=== PATIENT | female | born 1955 | race Caucasian/White ===

== ENCOUNTER 2019-02-14 10:34 | Inpatient (IN) ==
--- NOTE | 2019-01-13 15:12 | PAT Medication Instructions ---
Medication Instructions Date of Service January 13, 2019 Home Medications cyanocobalamin (vitamin B-12) [Vitamin B-12] 5,000 mcg SUBLINGUAL QAM ergocalciferol (vitamin D2) [Vitamin D2] 50,000 unit PO WK hydrochlorothiazide 25 mg PO QAM omeprazole magnesium [Prilosec OTC] 20 mg PO QAM DO NOT take the morning of surgery cyanocobalamin (vitamin B-12) [Vitamin B-12] 5,000 mcg SUBLINGUAL QAM ergocalciferol (vitamin D2) [Vitamin D2] 50,000 unit PO WK hydrochlorothiazide 25 mg PO QAM Take morning of surgery With a small sip of water, OTHERWISE NOTHING TO EAT OR DRINK AFTER MIDNIGHT: omeprazole magnesium [Prilosec OTC] 20 mg PO QAM Other Notes If you have any questions please call us at [phone] or [phone] or [phone] or [phone]
--- NOTE | 2019-01-14 12:52 | Anesthesiology Consultation ---
Date of Service January 14, 2019 Assessment & Plan (1) Encounter for pre-operative examination: - Claustrophobia: patient anxious RE: oxygen mask-- patient states tolerates nasal cannula without issue - Hx L5-S1 fusion: per patient, attempted SAB for prior left TKA (at [facility]) was unsuccessful due to hx of prior lumbar fusion. Discussed SAB vs. GA with patient. Advised that anesthesia will evaluate patient further AM DOS/determine type of anesthesia. Chart Review Chart Review: Pending: Refer to Additional Notes / Consult section (pending preop testing (labs, EKG, CXR)) and Patient seen in Pre Admission Testing Teaching & Discussion Pre-Anesthesia Teaching/Discussion Notes: Instructed NPO after midnight before surgery,except medications with 15 cc of water. Medication instructions provided according to the PAT guidelines. History Surgery Operation Date: 02/14/19 08:30 Proposed Procedures p Right Total Knee Arthroplasty - Damián Felix, Height/Weight Height: 5 ft 6 in Weight: 97.2 kg Allergies Allergy/AdvReac Type Severity Reaction Status Date / Time Penicillins Allergy Intermediate as child Verified 01/07/19 07:56 cefuroxime AdvReac Severe YEAST Verified 01/07/19 07:56 INFECTION NSAIDS (Non-Steroidal AdvReac Unknown Unknown Verified 01/07/19 07:56 Anti-Inflamma SULFA Allergy Intermediate REDNESS Uncoded 01/07/19 07:56 Medications Home Medications Medication Instructions Recorded Confirmed Last Taken cyanocobalamin (vitamin B-12) 5,000 mcg SUBLINGUAL QAM 01/07/19 01/07/19 Unknown [Vitamin B-12] ergocalciferol (vitamin D2) 50,000 unit PO WK 01/07/19 01/07/19 Unknown [Vitamin D2] hydrochlorothiazide 25 mg PO QAM 01/07/19 01/07/19 Unknown omeprazole magnesium [Prilosec OTC] 20 mg PO QAM 01/07/19 01/07/19 Unknown Past Medical History Medical History Acid reflux s/p gastric bypass/controlled on PPI Obesity Claustrophobia DJD (degenerative joint disease) of knee HX: breast cancer 03/2018 s/p lumpectomy/XRT Exercise / Class Metabolic Activity II 4-5 Yardwork/Stairs/Walk up hill (one flight of stairs- no chest pain/sob) Past Surgical History Surgical History History of back surgery History of cardiac cath 2007= no stents History of gastric bypass History of lumpectomy of left breast History of surgery on right wrist History of total left knee replacement Hx of section x3 Hx of cholecystectomy Hx of colonoscopy Hx of cornea transplant right Hx of foot surgery left Hx of tonsillectomy Past Anesthesia History Other Patient: per patient, attempted SAB for prior left TKA (at [facility]) was unsuccessful due to hx of prior lumbar fusion. Also, history of "slow to wake" Mother: "goofy" and post-op n/v History of PONV No Hx of PONV and No Hx of Motion Sickness Social History Smoking Status: Never smoker Do You Dip or Chew Tobacco: No Hx Alcohol Use: Yes Alcohol type: beer, wine and hard liquor alcohol intake frequency: a few times a month Hx Substance Use: No Review of Systems + URI symptoms. Rare reflux s/p gastric bypass. Patient denies chest pain, shortness of breath, dyspnea on exertion, joint pain, reflux, palpitations. Physical Exam Vital Signs VITALS BP 133/83 P 65 TEMP 97.8 SP02 98%RA RESP 16 PHYSICAL Full neck and c-spine range of motion. Full TMJ range of motion. TMD 3 finger breaths Mallampati Score 2 Dentition: intact, implants on molar Lungs: clear throughout to auscultation Cardiac: regular rate and rhythm, no murmurs noted Spine: normal Carotid arteries: negative bruit Extremities: no edema
[2019-01-14 13:26] LABS: Basophils # (auto) 0.02 K/uL (0-0.2); Basophils % (auto) 0.3 %; Eosinophils # (auto) 0.05 K/uL (0-0.5); Eosinophils % (auto) 0.8 %; Hemoglobin 11.9 g/dL (12.0-16.0); Immature Granulocytes # (auto) 0.01 K/uL (0.00-0.02); Immature Granulocytes % (auto) 0.2 %; Lymphocytes # (auto) 1.83 K/uL (1.2-3.4); Lymphocytes % (auto) 30.4 %; Mean Corpuscular Hemoglobin 30.1 pg (25-34); Mean Corpuscular Hgb Conc 32.2 g/dL (32-36); Mean Corpuscular Volume 93.4 fL (80-100); Mean Platelet Volume 10.9 fL (7.4-10.4); Monocytes % (auto) 6.6 %; Neutrophils # (auto) 3.71 K/uL (1.4-6.5); Neutrophils % (auto) 61.7 %; Platelet Count 226 K/uL (130-400); RDW Coefficient of Variation 13.6 % (11.5-14.5); RDW Standard Deviation 46.6 fL (36.4-46.3); Red Blood Count 3.96 M/uL (4.2-5.4); White Blood Count 6.02 K/uL (4.8-10.8)
--- NOTE | 2019-01-14 13:33 | XRay Report ---
XR chest Pre-admission PA/Lat CLINICAL HISTORY: pat preoperative evaluation COMPARISON STUDY: No previous studies for comparison. FINDINGS: The bones soft tissues and hemidiaphragms are normal. The cardiomediastinal silhouette is n ormal. The lungs are clear. The pulmonary vasculature is normal. IMPRESSION: Negative chest. The above report was generated using voice recognition software. It may contain grammatical, syntax or spelling errors. Electronically signed by: Klever Valdivia M.D. 01/14/2019 1:32 PM
[2019-01-14 13:46] LABS: Partial Thromboplastin Ratio 0.9; Partial Thromboplastin Time 25.1 Seconds (21.0-31.0)
[2019-01-14 14:37] LABS: BUN Creatinine Ratio 16.7 (10-20); Calcium 8.2 mg/dl (8.5-10.1); Creatinine Clr Calc Pharmacy 91.4 ml/min; Est GFR (Non-African American) 85.4; Potassium 3.3 mmol/L (3.5-5.1)
--- NOTE | 2019-02-13 14:54 | History & Physical Report ---
Date of Service February 13, 2019 Assessment & Plan (1) Osteoarthritis of right knee: We will proceed with a right total knee arthroplasty. Postoperatively she will be started on aspirin for DVT prophylaxis. She will be kept overnight in the hospital for postoperative medical management. She plans to use home nursing agency in [place] upon discharge. Present on Admission?: Yes History of Present Illness Chief Complaint: Primary osteoarthritis of the right knee Primary Care Provider: NO PCP Keisha is a pleasant 63-year-old female who had a left knee replaced in [place] a year ago. She is doing well with that. Unfortunately she is having a lot of right knee pain. X-rays and clinical examination have been diagnostic for osteoarthritis of the right knee. After failing conservative treatment, she has elected to proceed with a right total knee arthroplasty. Allergies Allergy/AdvReac Type Severity Reaction Status Date / Time Penicillins Allergy Intermediate as child Verified 01/07/19 07:56 Sulfa (Sulfonamide Allergy Redness Verified 02/11/19 09:02 Antibiotics) cefuroxime AdvReac Severe YEAST Verified 01/07/19 07:56 INFECTION NSAIDS (Non-Steroidal AdvReac Unknown Unknown Verified 01/07/19 07:56 Anti-Inflamma Home Medications Home Medications Medication Instructions Recorded Confirmed Type cyanocobalamin (vitamin B-12) 5,000 mcg SUBLINGUAL QAM 01/07/19 01/07/19 History [Vitamin B-12] ergocalciferol (vitamin D2) 50,000 unit PO WK 01/07/19 01/07/19 History [Vitamin D2] hydrochlorothiazide 25 mg PO QAM 01/07/19 01/07/19 History omeprazole magnesium [Prilosec OTC] 20 mg PO QAM 01/07/19 01/07/19 History Past Med/Surg History Medical History (Updated 02/13/19 @ 14:54 by Damián Felix DO) Acid reflux s/p gastric bypass/controlled on PPI Claustrophobia DJD (degenerative joint disease) of knee HX: breast cancer 03/2018 s/p lumpectomy/XRT Obesity Surgical History History of back surgery History of cardiac cath 2008= no stents History of gastric bypass History of lumpectomy of left breast History of surgery on right wrist History of total left knee replacement Hx of section x3 Hx of cholecystectomy Hx of colonoscopy Hx of cornea transplant right Hx of foot surgery left Hx of tonsillectomy Social History Preferred Language: Greek Communication Ability: Effective Beliefs That Will Affect Care: None Current Living Situation: Spouse Feels Safe at Home: Yes Safety Concerns: Feels Safe At This Time Smoking Status: Never smoker Do You Dip or Chew Tobacco: No ; Second Hand Exposure: No ; Hx Alcohol Use: Yes Alcohol type: beer, wine and hard liquor Hx Substance Use: No Review of Systems All systems reviewed & are unremarkable except as noted in HPI & below Physical Exam Constitutional: WD/WN, vitals as above Eyes: PERRL, conjunctivae normal, anicteric sclerae ENMT: external ear and nose normal, oropharynx normal Neck: trachea midline, no thyromegaly Respiratory: normal respiratory effort Cardiovascular: RRR, no murmur, no edema Gastrointestinal (Abdomen): normal bowel sounds, soft, nontender, no hepatosplenomegaly Musculoskeletal: On physical examination of the right knee there is a trace effusion. There is near full range of motion and no evidence of instability. There is significant tenderness palpation along the medial and lateral joint lines and over the distal femoral condyles. Psychiatric: A+Ox3, euthymic affect Results & Data Diagnostic Findings Radiographs of the right knee demonstrate advanced osteoarthritis with joint space narrowing osteophyte formation and [id number] articulation.
[~2019-02-14 10:34] MED LIST: ACETAMINOPHEN 500 MG TAB PO SCH; BUPIVACAINE 0.5 % 5 MG/1 ML PF 10ML VIAL ONE; CEFAZOLIN 2000MG 2,000 MG/15 ML SYR IV SCH; FAMOTIDINE 20 MG TAB PO SCH; GABAPENTIN 600 MG DOSE PO SCH; LR 500ML BOLUS, THEN 15ML/HR IV SCH; LR 60ML/HR IV SCH; MIDAZOLAM HCL 1 MG/ML 2ML VIAL ONE; ROPIVACAINE 0.5% HCL/PF 150 MG, BUPIVACAINE 0.5% MPF 30 ML, EPINEPHrine 30MG/30ML (OR U... INSTIL SCH; TRANEXAMIC ACID 1,000 MG **IV Intra-op IV SCH; TRANEXAMIC ACID 1,000 MG **IV Pre-op IV SCH; fentaNYL citrate 100 MCG/2 ML VIAL ONE
--- NOTE | 2019-02-14 11:19 | History & Physical Bridge Note ---
Date of Service February 14, 2019 History & Physical Bridge Note I have examined the patient, reviewed the History & Physical and in the interval since the performance of the History & Physical I have noted the following changes of clinical significance: no changes noted
[2019-02-14] MEDS ORDERED: CEFAZOLIN 2,000 MG/15 ML IV PUSH IV ONE (11:57)
[2019-02-14] MEDS ORDERED: ORTHO JOINT ANESTHETIC ONE (11:59)
[2019-02-14] MEDS ORDERED: ePHEDrine sulfate 50 MG/ML AMP IV PRN (12:18)
[2019-02-14] MEDS ORDERED: ONDANSETRON INJ 2 MG/ML 2 ML VIAL IV PRN ×2 (12:18→16:05)
[2019-02-14] MEDS ORDERED: fentaNYL citrate 100 MCG/2 ML VIAL IV PRN (12:18)
[2019-02-14] MEDS ORDERED: ATROPINE SULFATE 0.1 MG/ML 10ML SYR IV PRN (12:18)
[2019-02-14] MEDS ORDERED: PROPOFOL IV EMULSION 10 MG/ML 20 ML VIAL IV ONE (13:00)
[2019-02-14] MEDS ORDERED: ONDANSETRON INJ 2 MG/ML 2 ML VIAL ONE (13:00)
[2019-02-14] MEDS ORDERED: LIDOCAINE HCL 2% 2 ML VIAL/AMP(20MG/ML) INFIL ONE (13:00)
--- NOTE | 2019-02-14 14:11 | Operative Report ---
PG Post Operative Report Pre & Post Diagnosis Operation Date: 02/14/19 13:40 Pre-Op Diagnosis: RIGHT KNEE DEGENERATIVE JOINT DISEASE Post-Op Diagnosis: RIGHT KNEE DEGENERATIVE JOINT DISEASE I identified the patient and participated in the time-out.: Yes Procedure Operation Date: 02/14/19 13:40 Actual Procedures p Right Total Knee Arthroplasty(Right) - Damián Felix DO Surgeon Damián Felix DO Systems Eng Damián Vogt PAC Estimated Blood Loss 20 Findings Consistent with Post-Op Diagnosis Specimens Right femoral and tibial bone Complications none Disposition Disposition: Recovery Room Indications Keisha is a pleasant 63-year-old female who presented my office with complaints of increasing right knee pain. X-rays and clinical examination were diagnostic for primary osteoarthritis of the right knee. After failing conservative treatment, she elected proceed with a right total knee arthroplasty. Description of Procedure Implants used: I used a [employer] Vanguard total knee arthroplasty system with a size 67.5 femur, 67 tibia, 28 patella, and a size 10 PS polyethylene bearing. All components were cemented in place with Palacos G cement. The patient arrived [facility] for the above procedure. There were seen in the preoperative holding area and the operative extremity was identified and signed. There were given a preoperative antibiotic, a spinal anesthetic and an adductor nerve block. There were taken back to the operating room and laid on the table in supine position. There were given basic sedation. The operative knee was then prepped and draped in sterile fashion. A timeout was done, and the patient and the operative extremity was properly identified. A midline incision was made directly over the patella. Dissection was taken down to the extensor mechanism. A subvastus arthrotomy was used. The medial retinaculum was released and the fat pad was mostly left intact. The knee was flexed and the ACL, PCL, and meniscus were removed. A drill was sent down the center of the femoral canal followed by an intramedullary angelic. Off that angelic a distal femoral cutting block was placed. 9 mm was resected off the distal femur at 5 of valgus. A posterior referencing AP sizing guide was then placed on the distal femur. The femur measured to be a size 67.5. 2 drill holes were placed in 3 of external rotation. A 4-in-1 cutting block was then impacted into place. Anterior posterior and chamfer cuts were then made. The posterior stabilizing box guide was then impacted into place and the box was resected for the posterior stabilizing component. The proximal tibia was then exposed. A drill was sent down the center of the tibial canal followed by an intramedullary angelic. Off that angelic a proximal tibial resection guide was placed. The proximal tibia was then resected. The tibia measured to be a size 67. The tibial plate was then placed in the appropriate rotation and the tibia was punched. The posterior aspect of the knee was then opened up and any additional meniscus fragments and osteophytes were removed. Trial components were then placed. I used a size 10 PS polyethylene insert. The knee was brought through a full range of motion and felt to be stable. The patella was then everted and 8 mm was resected off the posterior aspect of the patella. The patella measured to be a size 28. 3 peg holes were then drilled. A trial patella was placed. The knee was once again brought through a full range of motion and felt to be stable. Trial components were then removed. The surrounding soft tissues were injected with 100 cc of an orthopedic pain control cocktail. All components were then cemented into place with Palacos G cement. The final polyethylene insert was then snapped into place and the anterior bar was locked. Once cement was dry the tourniquet was deflated. Hemostasis was obtained. A dilute betadyne lavage was then done for 3 minutes. The joint was then irrigated with normal saline solution. The subvastus arthrotomy was then closed with #1 Vicryl suture. The skin was closed with 2-0 Vicryl, 3-0V lock suture, and rafa. A soft compressive dressing was placed. The patient was then transferred to a hospital bed and taken to the postanesthesia care unit in stable condition. They tolerated the procedure well. I attest to the content of the Intraoperative Record and any orders documented therein. Any exceptions are noted below.
--- NOTE | 2019-02-14 15:19 | XRay Report ---
RIGHT KNEE 2 VIEWS History: Right total knee arthroplasty. Degenerative arthritis. Postop. FINDINGS: The patient is status post a right total knee arthroplasty. The hardware is intact. No frac ture or dislocation. Skin rafa are in place. IMPRESSION: Right total knee arthroplasty. No evidence for hardware complication. Electronically signed by: Yimi Cosby M.D. 02/14/2019 3:18 PM
--- NOTE | 2019-02-14 15:30 | Anesthesiology Progress Note ---
Date of Service February 14, 2019 Anesthesia Post Procedure Vital Signs Vital Signs: Temp Pulse Pulse Resp BP Pulse Ox 02/14/19 15:23 49 L 20 136/63 100 02/14/19 15:13 50 L 17 137/68 100 02/14/19 15:03 54 L 18 130/70 100 02/14/19 14:53 36.5 C 54 L 16 127/62 97 02/14/19 14:43 36.5 C 54 L 16 127/62 97 02/14/19 11:32 36.7 C 58 L 20 142/71 H 98 Pain Intensity Right Knee: Pain Intensity: 0 Transfer of Care Handoff Completed per policy Notes Mental Status: alert / awake / arousable and participated in evaluation Patient Amnestic to Procedure: Yes Nausea / Vomiting: adequately controlled Pain: adequately controlled Airway Patency, RR, SpO2: stable & adequate BP & HR: stable & adequate Hydration State: stable & adequate Neuraxial Anesthesia: was administered and sensory block is resolving Anesthetic Complications: no major complications apparent and Pt Satisfied with anesthetic care
[2019-02-14] MEDS: SODIUM CHLORIDE 0.9% 1000ML 1,000 ML IV SCH ×2 (15:55→23:27)
[2019-02-14] MEDS ORDERED: NALOXONE HCL 0.4 MG/1 ML VIAL/CARP IV PRN (16:05)
[2019-02-14] MEDS ORDERED: MAGNESIUM HYDROXIDE SUSP 30 ML UDC PO PRN (16:05)
[2019-02-14] MEDS ORDERED: BISACODYL 10 MG SUPP PR PRN (16:05)
[2019-02-14] MEDS ORDERED: HYDROmorphone INJ 0.5 MG/0.5 ML SYR IV PRN (16:05)
[2019-02-14] MEDS ORDERED: METOCLOPRAMIDE HCL INJ 5 MG/ML 2 ML VIAL IV PRN (16:05)
[2019-02-14] MEDS: prednisoLONE acetate 1% OP SUSP 5 ML BTL OPR SCH ×2 (18:22→20:17)
[2019-02-14] MEDS: OFLOXACIN 0.3% OP SOLN 5 ML BTL OPR SCH ×2 (18:22→20:17)
[2019-02-14] MEDS: SENNA 8.6 MG TAB PO SCH (20:17)
[2019-02-14] MEDS: ASPIRIN 81 MG ECTAB PO SCH (20:17)
[2019-02-14] MEDS: DOCUSATE SODIUM 100 MG CAP PO SCH (20:17)
[2019-02-14] MEDS: ACETAMINOPHEN 500 MG TAB PO SCH (20:17)
[2019-02-14] MEDS: CEFAZOLIN 2000MG 2,000 MG/15 ML SYR IV SCH (20:17)
[2019-02-15] MEDS: OXYCODONE HCL IR 5 MG TAB (IMMEDIATE RELEASE) PO PRN ×6 (01:48→22:24)
[2019-02-15] MEDS: ACETAMINOPHEN 500 MG TAB PO SCH ×3 (05:00→22:19)
[2019-02-15] MEDS: CEFAZOLIN 2000MG 2,000 MG/15 ML SYR IV SCH (05:00)
[2019-02-15 05:51] LABS: Hematocrit (blood only) 34.5 % (37-47); Hemoglobin 11.3 g/dL (12.0-16.0); Mean Corpuscular Hemoglobin 30.5 pg (25-34); Mean Corpuscular Hgb Conc 32.8 g/dL (32-36); Mean Platelet Volume 11.3 fL (7.4-10.4); Platelet Count 204 K/uL (130-400); RDW Coefficient of Variation 13.8 % (11.5-14.5); RDW Standard Deviation 46.9 fL (36.4-46.3); Red Blood Count 3.71 M/uL (4.2-5.4); White Blood Count 10.93 K/uL (4.8-10.8)
[2019-02-15 06:20] LABS: BUN Creatinine Ratio 25.8 (10-20); Calcium 8.3 mg/dl (8.5-10.1); Creatinine Clr Calc Pharmacy 100.2 ml/min; Est GFR (African American) 108.7; Est GFR (Non-African American) 93.7; Potassium 4.2 mmol/L (3.5-5.1)
--- NOTE | 2019-02-15 08:26 | Orthopedic Progress Note ---
Date of Service February 15, 2019 Assessment & Plan (1) History of total right knee replacement: Overall she is doing well. She is not having much pain in the right knee. She is happy with her progress. She will be seen by physical therapy today for ambulation and range of motion exercises. If she is doing well she can be discharged home. If she is a little bit slow today and her pain increases, I told her that she could stay until tomorrow.She will follow-up with orthopedics in 2 weeks. Present on Admission?: Yes Subjective Keisha was seen and examined at bedside this morning. Overall she is doing well. She is not having any pain in the right knee. She is happy with her progress. She has been up and ambulating to the bathroom. She has no complaints. Physical Exam Musculoskeletal: On physical examination of the right knee, the dressing is clean and dry. Her legs out in full extension. She has active dorsiflexion and plantarflexion of her right ankle. Sensation is intact throughout. Results & Data Vital Signs (Past 12 Hours) Vital Signs Temp Pulse Resp BP Pulse Ox 02/15/19 07:56 36.7 C 59 L 17 122/68 95 02/15/19 03:21 36.7 C 56 L 16 109/66 94 02/14/19 23:24 36.6 C 55 L 16 127/76 95 Laboratory Results H & H 01/14/19 02/15/19 Range/Units 13:08 04:52 Hgb 11.9 L 11.3 L (12.0-16.0) g/dL Hct 37.0 34.5 L (37-47) % Coagulation 01/14/19 Range/Units 13:08 INR 1.0 (0.9-1.1) Diagnostic Findings Postoperative x-rays of the right knee show the prosthesis to be in anatomic alignment without any evidence of fracture, dislocation, or loosening. PG Care Time/CCT Total # of Minutes Spent Total Time Spent with Patient: Total time spent is greater than 50% in coordination of care (as documented) at patient's floor/unit and/or counseling patient:
[2019-02-15] MEDS: DOCUSATE SODIUM 100 MG CAP PO SCH ×2 (09:10→20:01)
[2019-02-15] MEDS: MULTIVITAMIN TAB PO SCH (09:10)
[2019-02-15] MEDS: hydroCHLOROthiazide 25 MG TAB PO SCH (09:10)
[2019-02-15] MEDS: prednisoLONE acetate 1% OP SUSP 5 ML BTL OPR SCH ×4 (09:11→20:02)
[2019-02-15] MEDS: OFLOXACIN 0.3% OP SOLN 5 ML BTL OPR SCH ×4 (09:11→20:02)
[2019-02-15] MEDS: PANTOprazole 40 MG TAB PO SCH (09:11)
[2019-02-15] MEDS: ASPIRIN 81 MG ECTAB PO SCH ×2 (09:11→20:01)
--- NOTE | 2019-02-15 14:36 | Anesthesiology Progress Note ---
Date of Service February 15, 2019 Anesthesia Post Procedure Vital Signs Vital Signs: Temp Pulse Pulse Resp BP Pulse Ox 02/15/19 11:58 36.7 C 56 L 17 146/89 H 100 02/15/19 07:56 36.7 C 59 L 17 122/68 95 02/15/19 03:21 36.7 C 56 L 16 109/66 94 02/14/19 23:24 36.6 C 55 L 16 127/76 95 02/14/19 19:01 36.7 C 60 16 120/70 96 02/14/19 17:54 36.4 C L 62 16 127/76 98 02/14/19 17:04 36.3 C L 50 L 16 145/82 H 100 02/14/19 16:25 36.4 C L 47 L 16 144/82 H 100 02/14/19 15:55 36.4 C L 47 L 15 131/77 100 02/14/19 15:43 47 L 17 144/73 H 100 02/14/19 15:33 36.4 C L 51 L 18 131/69 100 02/14/19 15:23 49 L 20 136/63 100 02/14/19 15:13 50 L 17 137/68 100 02/14/19 15:03 54 L 18 130/70 100 02/14/19 14:53 36.5 C 54 L 16 127/62 97 02/14/19 14:43 36.5 C 54 L 16 127/62 97 Pain Intensity Right Knee: Pain Intensity: 4 Notes Mental Status: alert / awake / arousable Patient Amnestic to Procedure: Yes Nausea / Vomiting: adequately controlled Pain: adequately controlled Airway Patency, RR, SpO2: stable & adequate BP & HR: stable & adequate Hydration State: stable & adequate Neuraxial Anesthesia: was administered and sensory block resolved Anesthetic Complications: no major complications apparent and Pt Satisfied with anesthetic care
[2019-02-15] MEDS: SENNA 8.6 MG TAB PO SCH (20:01)
[2019-02-16] MEDS: OXYCODONE HCL IR 5 MG TAB (IMMEDIATE RELEASE) PO PRN ×3 (03:19→09:45)
[2019-02-16] MEDS: ACETAMINOPHEN 500 MG TAB PO SCH (05:38)
[2019-02-16 06:31] VITALS: BP 114/67; PULSE 68; TEMP 98.4; O2SAT 91
[2019-02-16] MEDS: PANTOprazole 40 MG TAB PO SCH (07:44)
[2019-02-16] MEDS: ASPIRIN 81 MG ECTAB PO SCH (07:45)
[2019-02-16] MEDS: hydroCHLOROthiazide 25 MG TAB PO SCH (07:45)
[2019-02-16] MEDS: DOCUSATE SODIUM 100 MG CAP PO SCH (07:45)
[2019-02-16] MEDS: MULTIVITAMIN TAB PO SCH (07:45)
[2019-02-16] MEDS: prednisoLONE acetate 1% OP SUSP 5 ML BTL OPR SCH (07:46)
[2019-02-16] MEDS: OFLOXACIN 0.3% OP SOLN 5 ML BTL OPR SCH (07:46)
--- NOTE | 2019-02-16 08:31 | Orthopedic Progress Note ---
Date of Service February 16, 2019 Assessment & Plan (1) History of total right knee replacement: Patient will discharge later this more improved and stable. Instruction precautions provided discharge plan in place Present on Admission?: Yes Subjective Some anterior thigh pain and lateral pain on the calf but no true calf tenderness denies chest pain shortness of breath confusion fever sweats chills Review of Systems Review of Systems: Denies fever sweats chills Physical Exam Physical Exam: Wound clean dry protected negative Homans sign good range of motion Results & Data Vital Signs (Past 12 Hours) Vital Signs Temp Pulse Resp BP Pulse Ox 02/16/19 07:52 36.9 C 68 16 114/67 91 02/16/19 06:29 36.9 C 68 16 114/67 91 02/15/19 22:46 36.8 C 64 16 99/62 L 94 PG Care Time/CCT Total # of Minutes Spent Total Time Spent with Patient: Total time spent is greater than 50% in coordination of care (as documented) at patient's floor/unit and/or counseling patient:
--- NOTE | 2019-02-25 15:35 | Discharge Summary ---
Date of Service February 25, 2019 Admission HPI Per Admitting Provider Keisha is a pleasant 63-year-old female who had a left knee replaced in [place] a year ago. She is doing well with that. Unfortunately she is having a lot of right knee pain. X-rays and clinical examination have been diagnostic for osteoarthritis of the right knee. After failing conservative treatment, she has elected to proceed with a right total knee arthroplasty. Principal Diagnosis Right total knee arthroplasty Discharge Data Allergies Allergy/AdvReac Type Severity Reaction Status Date / Time Penicillins Allergy Intermediate as child Verified 02/14/19 11:29 Sulfa (Sulfonamide Allergy Redness Verified 02/14/19 11:29 Antibiotics) cefuroxime AdvReac Severe YEAST Verified 02/14/19 11:29 INFECTION NSAIDS (Non-Steroidal AdvReac Unknown Unknown Verified 02/14/19 11:29 Anti-Inflamma Consultations 02/14/19 16:05 Consult Case Management - Discharge Planning Routine Procedures Performed Operation Date: 02/14/19 13:40 Actual Procedures p Right Total Knee Arthroplasty(Right) - Damián Felix DO Ordered Studies 02/14/19 05:00 US - OR guided needle placemen Routine Hospital Course (1) History of total right knee replacement: On February 14, 2019 and arrived at [facility] and underwent a right total knee arthroplasty without complications. She had a spinal anesthetic and a right adductor nerve block. Postoperatively she was started on aspirin for DVT prophylaxis and discharged to general orthopedic floors. Her hospital course is uneventful. On postop day #1 her H&H was stable and her pain was well controlled. She was able to ambulate well with physical therapy. On postop day #2 she continued to do well. The dressing was changed. She participated well once again with physical therapy. She was then discharged to home. She will follow-up with orthopedics in 2 weeks. Total Time Total Time Spent Total Time Spent (In Minutes): 20 Discharge Plan Discharge Items Patient Disposition: Home - Home Health Services Reason For Visit: RIGHT KNEE DEGENERATIVE JOINT DISEASE Discharge Diagnosis: Right total knee arthroplasty Activity: As commented below Non-emergency contact: Surgeon Call non-emergency contact if: your wound has increased redness and your wound has increased drainage Follow-up/Referrals: Mireya Florez PA-C [Primary Care Provider] - Diet: Regular Addtl Attending Provider Instructions: Activity and Therapy Recommendations: * If you are using [facility] then therapy will be provided at your home until they feel you have accomplished all of your goals. * If you are using [facility] then Physical Therapy will be provided until they feel you are ready to start Outpatient Physical Therapy. * If you are not using home therapy then Outpatient Physical Therapy should start about 3-5 days from your day of surgery. Therapy will last about 6-10 weeks * It is important not to put a pillow under your knee when you are relaxing or sleeping. It is just as important to make sure you are getting your knee perfectly straight as it is to regain your knee bend. * You were shown a series of exercises in the hospital. Do these exercises three times each day including the exercises you were shown in physical therapy. * Get up and walk several times each day. For the first four weeks, try not to stand or walk for more than one hour at a time. If you do stand or walk for more than one hour, you will not hurt anything, but your leg will likely swell. * As you feel comfortable, you may change from the walker or crutches to a cane and then to independent walking. Medications: * Narcotic You will likely be sent home from the hospital with a prescription for the narcotic pain medication that worked best throughout your stay. * Aspirin Most patients will be required to take Aspirin 81mg twice a day for 6 weeks after surgery. This is obtained [id number] and a prescription is not necessary. * Other medications may be prescribed for specific circumstances. If you have any questions, please call the office at . * Resume previous home medications unless otherwise instructed TEDs/Elastic Stockings: The white elastic stockings help limit swelling and prevent blood clots from forming in your legs.~ The more you wear them, the more they work. Wear them for six weeks. Dressing Care: If the incision is not draining then you may leave the rafa open to air. If there is a little bit of drainage or if the rafa are getting stuck on your clothing then cover the incision with a dry dressing. The rafa will be removed at your 2 week follow-up appointment. Showering: You may shower 5 days from the day of surgery. Let the soapy shower water run over the rafa and pat them dry. Do not scrub or soak the incision. Things To Watch For: * Drainage from the incision site that occurs more than one week after your surgery. * Increased redness at the incision site. * Fever above 102 degrees Fahrenheit. * Unusual chest pain or shortness of breath. * Call [facility] at with any of the above problems Follow-Up Visit: Follow-up with Dr. Felix 2-3 weeks after your day of surgery. An appointment was probably scheduled when you signed-up for surgery in the office. If you have any questions call Office Instructions: More detailed instructions as well as Frequently Asked Questions were provided in a folder by our office when you signed-up for surgery. Please review these instructions when you get home. If you have any further questions or concerns, please feel free to call the office at [phone] Pending Studies at Discharge: No Stand-Alone Forms: My [facility], Opioid Pain Management, Smoking Cessation Medications and DC Order Prescriptions: New oxycodone 5 mg Tablet 5 mg PO Q4H PRN (Reason: pain) Qty: 30 RF: 0 aspirin [Ecotrin Low Strength] 81 mg Tablet,Delayed Release (Dr/Ec) 81 mg PO BID Qty: 84 RF: 0 Continued hydrochlorothiazide 25 mg Tablet 25 mg PO QAM RF: 0 Prilosec OTC 20 mg Tablet,Delayed Release (Dr/Ec) 20 mg PO QAM RF: 0 ergocalciferol (vitamin D2) [Vitamin D2] 50,000 unit Capsule 50,000 unit PO WK RF: 0 cyanocobalamin (vitamin B-12) [Vitamin B-12] 5,000 mcg Tablet, Sublingual 5,000 mcg SUBLINGUAL QAM RF: 0 cholecalciferol (vitamin D3) [Vitamin D3] 5,000 unit Tablet 5,000 unit PO DAILY RF: 0 prednisolone acetate 1 drp OPR QID RF: 0 ofloxacin 0.3 % Drops 1 drp OPR QID RF: 0 No Action oxycodone 5 mg tablet 5 mg PO Q6 PRN (Reason: pain) Qty: 30 RF: 0 oxycodone-acetaminophen [Percocet] 5-325 mg tablet 1 tab PO Q6H PRN (Reason: pain) Qty: 30 RF: 0 Discharge Orders: Discharge Order (Routine); Ordered 02/15/19 Ordered By: Damián Felix Admission Data Admit Date/Time: 02/14/19 14:44 Attending Provider: Damián Felix Admit Provider: Damián Felix Primary Care Provider: Mireya Florez Other Interventions: Discharge Summary Assessment (RN) Last Done: 02/16/19 07:52 DC Date/Time DO NOT enter until pt leaves facility: 02/16/19 10:14
== END 2019-02-16 10:14 | disposition home health service (06) | DRG 470 ==
LOC: ASU 10:34 → 3E 14:44

== ENCOUNTER 2020-07-12 09:55 | Observation (INO) ==
--- NOTE | 2020-06-25 10:21 | Anesthesiology Consultation ---
Date of Service June 25, 2020 Assessment & Plan (1) Encounter for pre-operative examination: Chart Review Chart Review: Acceptable Risk for Surgery and Patient NOT seen in Pre Admission Testing Consults Requested none History Surgery Operation Date: 07/12/20 14:00 Proposed Procedures p Total Knee Revision - Damián Felix DO Height/Weight Height: 5 ft 6 in Weight: 97.522 kg Allergies Allergy/AdvReac Type Severity Reaction Status Date / Time Penicillins Allergy Intermediate as child Verified 06/17/20 09:46 Sulfa (Sulfonamide Allergy Redness Verified 06/17/20 09:46 Antibiotics) cefuroxime AdvReac Severe YEAST Verified 06/17/20 09:46 INFECTION NSAIDS (Non-Steroidal AdvReac Unknown hx gastric Verified 06/17/20 09:46 Anti-Inflamma bypass Medications Home Medications Medication Instructions Recorded Confirmed Last Taken cyanocobalamin (vitamin B-12) 5,000 mcg SUBLINGUAL QAM 01/07/19 06/17/20 02/13/19 08:00 [Vitamin B-12] hydrochlorothiazide 25 mg PO QAM 01/07/19 06/17/20 02/13/19 08:00 omeprazole magnesium [Prilosec OTC] 20 mg PO QAM 01/07/19 06/17/20 02/14/19 08:00 cholecalciferol (vitamin D3) 5,000 unit PO QAM 02/14/19 06/17/20 02/13/19 08:00 [Vitamin D3] prednisolone acetate 1 drp OPR QAM 02/14/19 06/17/20 02/14/19 11:30 apremilast 30 mg tablet 30 mg PO BID 05/25/20 06/17/20 Unknown aspirin [Ecotrin Low Strength] 81 mg PO QAM 06/17/20 06/17/20 Unknown Past Medical History Medical History (Updated 06/25/20 @ 10:21 by Renny Perez MD) Acid reflux s/p gastric bypass/controlled on PPI Claustrophobia SEVERE-PT PREFERS NOT TO HAVE OXYGEN MASK OVER FACE TILL AFTER SEDATION GIVEN DJD (degenerative joint disease) of knee HX: breast cancer 03/2018 s/p lumpectomy/XRT Hypertension Obesity Rheumatoid arthritis F/U DR MARIAM PIMENTEL Past Family History Family History (Updated 06/17/20 @ 09:58 by Zee Pratt, RN) Mother Family history of reaction to anesthesia PONV Past Surgical History Surgical History (Updated 06/17/20 @ 09:55 by Zee Pratt, BALTAZAR) History of back surgery History of cardiac cath 2008= no stents History of gastric bypass 2006 History of lumpectomy of left breast History of surgery on right wrist History of total left knee replacement (~2018) History of total right knee replacement (~2019) Hx of section x3 Hx of cholecystectomy Hx of colonoscopy Hx of cornea transplant right Hx of foot surgery left Hx of tonsillectomy Social History Smoking Status: Never smoker Do You Dip or Chew Tobacco: No Hx Alcohol Use: Yes Alcohol type: hard liquor alcohol intake frequency: a few times a week Hx Substance Use: No Testing Laboratory Results Laboratory Tests 05/25/20 15:01 WBC 8.06 Hgb 11.6 L Hct 36.4 L Plt Count 321 Electrocardiogram Date: 06/24/20 Findings: + NSR @ and + NSST changes
--- NOTE | 2020-07-12 06:22 | History & Physical Report ---
Date of Service July 12, 2020 Assessment & Plan (1) Painful total knee replacement: We will proceed with a revision of her right knee. It will depend on what I see intraoperatively for how it is revised. I will remove the poly and check the stability of the tibial and femoral components. If I can not get full motion after removing scar tissue I may remove the components and either resect a little bit more tibia or downsize the femoral component depending on my intraoperative findings. Postoperatively she will be started on aspirin for DVT prophylaxis and kept overnight in the hospital for postoperative medical management. She plans to use [facility] for therapy upon discharge. History of Present Illness Chief Complaint: Painful right total knee. Primary Care Provider: NO PCP Keisha is a pleasant 64-year-old female who his about 15 months status post right total knee arthroplasty. Unfortunately she is never done well since the replacement. It is always sore. She has never regained full flexion. She stops at 90 degrees. She does get full extension. Her knee is sore with every step she takes. The x-rays have looked good. I do not see any signs of loosening on the x-rays. Her white blood cell count was negative. Sed rate and CRP were very mildly elevated. I aspirated her right knee and there was no signs of infection. I also sent the aspiration sample to [facility] and there was no signs of infection there. The knee does not appear to be infected but it is constantly sore. I sent her for bone scan. The bone scan showed increased uptake around the tibial and femoral components but said that it was very nonspecific. She cannot live with the knee the way it is. After failing extensive conservative treatment, she has elected to proceed with a revision right total knee arthroplasty.. Allergies Allergy/AdvReac Type Severity Reaction Status Date / Time Penicillins Allergy Intermediate as child Verified 06/17/20 09:46 Sulfa (Sulfonamide Allergy Redness Verified 06/17/20 09:46 Antibiotics) cefuroxime AdvReac Severe YEAST Verified 06/17/20 09:46 INFECTION NSAIDS (Non-Steroidal AdvReac Unknown hx gastric Verified 06/17/20 09:46 Anti-Inflamma bypass Home Medications Medication Instructions Recorded Confirmed Type cyanocobalamin (vitamin B-12) 5,000 mcg SUBLINGUAL QAM 01/07/19 06/17/20 History [Vitamin B-12] hydrochlorothiazide 25 mg PO QAM 01/07/19 06/17/20 History omeprazole magnesium [Prilosec OTC] 20 mg PO QAM 01/07/19 06/17/20 History cholecalciferol (vitamin D3) 5,000 unit PO QAM 02/14/19 06/17/20 History [Vitamin D3] prednisolone acetate 1 drp OPR QAM 02/14/19 06/17/20 History apremilast 30 mg tablet 30 mg PO BID 05/25/20 06/17/20 History aspirin [Ecotrin Low Strength] 81 mg PO QAM 06/17/20 06/17/20 History Past Med/Surg History Medical History Acid reflux s/p gastric bypass/controlled on PPI Claustrophobia SEVERE-PT PREFERS NOT TO HAVE OXYGEN MASK OVER FACE TILL AFTER SEDATION GIVEN DJD (degenerative joint disease) of knee HX: breast cancer 03/2018 s/p lumpectomy/XRT Hypertension Obesity Rheumatoid arthritis F/U DR MARIAM PIMENTEL Surgical History History of back surgery History of cardiac cath 2008= no stents History of gastric bypass 2006 History of lumpectomy of left breast History of surgery on right wrist History of total left knee replacement (~2017) History of total right knee replacement (~2018) Hx of section x3 Hx of cholecystectomy Hx of colonoscopy Hx of cornea transplant right Hx of foot surgery left Hx of tonsillectomy Family History Mother Family history of reaction to anesthesia PONV Social History Smoking Status: Never smoker Second Hand Exposure: No; Do You Dip or Chew Tobacco: No; Hx Alcohol Use: Yes Alcohol type: hard liquor Hx Substance Use: No Preferred Language: Frisian Communication Ability: Effective 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 Physical Exam On physical examination of the right knee, she walks with a slightly antalgic gait. She has range of motion from 0 to 90 degrees. She cannot bend much past 90. She does have a soft endpoint though and I can push her little bit further. There is no signs of infection. There is no effusion. There is no redness. The incisions are all well-healed.. Constitutional WD/WN, vitals as above Eyes PERRL, conjunctivae normal, anicteric sclerae ENMT external ear and nose normal, oropharynx normal Neck trachea midline, no thyromegaly Respiratory normal respiratory effort Cardiovascular RRR, no murmur, no edema Gastrointestinal (Abdomen) normal bowel sounds, soft, nontender, no hepatosplenomegaly Psychiatric A+Ox3, euthymic affect Results & Data Results & Data Laboratory Results . Diagnostic Findings X-rays of the right knee show the prosthesis to be in anatomic alignment without any evidence of fracture, septation, or loosening. There appears to be an appropriate tibial slope and the femoral component appears to be sized appropriately.. PG Care Time/CCT Total # of Minutes Spent Total Time Spent with Patient: Total time spent is greater than 50% in coordination of care (as documented) at patient's floor/unit and/or counseling patient: Coding Level of Care Code None Diagnoses Painful total knee replacement T84.84XA; Z96.659
[~2020-07-12 09:55] MED LIST changes: +BUPIVACAINE 0.25% 30 ML VIAL ONE; -CEFAZOLIN 2000MG 2,000 MG/15 ML SYR IV SCH; +DEXAMETHASONE SOD INJ 4 MG/ML VIAL ONE; +EPINEPHrine INJ 1 MG/ML AMP ONE; -GABAPENTIN 600 MG DOSE PO SCH; +LR 15ML/HR IV SCH; -LR 500ML BOLUS, THEN 15ML/HR IV SCH; -MIDAZOLAM HCL 1 MG/ML 2ML VIAL ONE; -ROPIVACAINE 0.5% HCL/PF 150 MG, BUPIVACAINE 0.5% MPF 30 ML, EPINEPHrine 30MG/30ML (OR U... INSTIL SCH; +ROPIVACAINE 0.5% HCL/PF 150 MG, BUPIVACAINE 0.75% MPF 20 ML, EPINEPHrine 30MG/30ML (OR ... INSTIL SCH; +ceFAZolin 2000MG 2,000 MG/15 ML SYR IV SCH; +dexAMETHasone 4 MG TAB PO SCH; -fentaNYL citrate 100 MCG/2 ML VIAL ONE
[2020-07-12] MEDS ORDERED: MIDAZOLAM HCL 1 MG/ML 2ML VIAL ONE (12:21)
[2020-07-12] MEDS ORDERED: fentaNYL citrate 100 MCG/2 ML VIAL ONE (12:21)
[2020-07-12] MEDS ORDERED: PROPOFOL IV EMULSION 10 MG/ML 20 ML VIAL IV ONE (12:30)
[2020-07-12] MEDS ORDERED: LIDOCAINE HCL 2% 2 ML VIAL/AMP(20MG/ML) INFIL ONE (12:30)
[2020-07-12] MEDS ORDERED: GLYCOPYRROLATE 0.2 MG/ML VIAL ONE (12:30)
[2020-07-12] MEDS ORDERED: KETOROLAC 30 MG/ML VIAL ONE (12:30)
[2020-07-12] MEDS ORDERED: ONDANSETRON INJ 2 MG/ML 2 ML VIAL ONE (12:30)
[2020-07-12] MEDS ORDERED: PROMETHAZINE HCL 6.25 MG in SODIUM CHLORIDE 0.9% 50 ML IV PRN (12:46)
[2020-07-12] MEDS ORDERED: ONDANSETRON INJ 2 MG/ML 2 ML VIAL IV PRN ×2 (12:46→16:29)
[2020-07-12] MEDS ORDERED: fentaNYL citrate 100 MCG/2 ML VIAL IV PRN (12:46)
[2020-07-12] MEDS ORDERED: ePHEDrine sulfate 50 MG/ML AMP IV PRN (12:46)
[2020-07-12] MEDS ORDERED: ATROPINE SULFATE 0.1 MG/ML 10ML SYR IV PRN (12:46)
[2020-07-12] MEDS ORDERED: KETAMINE 50 MG/5 ML SYRINGE ONE (13:45)
[2020-07-12] MEDS ORDERED: ORTHO JOINT ANESTHETIC ONE (13:46)
--- NOTE | 2020-07-12 15:10 | Operative Report ---
PG Post Operative Report Pre & Post Diagnosis Operation Date: 07/12/20 12:45 Pre-Op Diagnosis: Painful Right Total Knee Arthroplasty Post-Op Diagnosis: Painful Right Total Knee Arthroplasty with dense scar tissue formation around the prosthesis, mostly involving the retropatellar fat pad scarred around the anterior tibial prosthesis I identified the patient and participated in the time-out.: Yes Procedure Operation Date: 07/12/20 12:45 Actual Procedures p Right Total Knee exploration, open extensive Debridement, Polyethylene Exchange(Right) - Damián Felix, Surgeon Daminá Felix, Fish Grader Damián Vogt PAC Estimated Blood Loss 10 Findings Consistent with Post-Op Diagnosis Specimens None Complications none Disposition Disposition: Recovery Room Indications Keisha is a pleasant 64-year-old female who I did a right knee replacement on in 2018. She never did great postoperatively. She could not flex past 90 degrees. We then were involved in the Covid pandemic and I did not see her into my office until about a year later. I did a full infection work-up including bone scan and x-rays. Everything came back either negative or nonspecific. She could not flex her knee past 90 degrees. Her knee was constantly painful. Afte r extensive discussions, we elected to proceed with an open exploration of the right knee with possible revision knee replacement. Description of Procedure On July 12, [address] [facility] for the above procedure. She was seen in the preoperative holding area and the operative extremity was identified and signed. She was given a preoperative antibiotic and a spinal anesthetic. She was taken back to the operating room and laid on the table in the supine position. She was put under basic sedation. The right knee was then prepped and draped in sterile fashion. A timeout was done. The patient and the operative extremity was properly identified. On preoperative physical examination, I could only flex her knee to about 90 degrees. It was a fairly hard stop. I tried to do a little bit of the manipulation but it would not move. I was able to get full extension easily. A midline incision was once again made over the previous incision site. Dissection was taken down to the extensor mechanism. A medial parapatellar arthrotomy was used. The knee was opened up. There was a small amount of fluid in the joint. It was very watery fluid. It appeared to be normal synovial fluid. There was absolutely no signs of infection. There was dense scar tissue mostly involving the retropatellar fat pad scarred into the anterior tibial prosthesis. Time was spent resecting this tissue. Extensive scar tissue was also removed from the undersurface of the patella and in the suprapatellar pouch. Time was then spent removing scar tissue from the medial lateral gutters. Once the scar tissue was removed, I was able to fully flex the knee to 130 degrees. There did not seem to be any problems with the mechanics of the prosthesis. I then removed the polyethylene insert for better inspection. I used an osteotome to test the stability of the tibial and femoral components. After time was spent assessing the stability, I decided that both components were very stable and there was no signs of loosening. The wound was irrigated. The [employer] Vanguard X millimeters posterior stabilized polyethylene insert was s napped into place. The anterior bar was locked. The knee was brought through a full range of motion and everything was stable. We then did a 3-minute Betadine lavage and injected the surrounding soft tissues with an orthopedic pain control cocktail. The extensor mechanism was then closed with #1 Vicryl. The knee was then flexed to about 130 degrees without any difficulty. The skin was closed with 2-0 Vicryl and rafa. A soft dressing was placed. She was then transferred to a hospital bed and taken to the postanesthesia care unit in stable condition. She tolerated the procedure well. Damián Vogt PA-C, was present for the entire procedure. He was critical for patient positioning, prepping, draping, retraction exposure, wound closure and application of sterile dressing. I attest to the content of the Intraoperative Record and any orders documented therein. Any exceptions are noted below.
[2020-07-12] MEDS ORDERED: NALOXONE HCL 0.4 MG/1 ML VIAL/CARP IV PRN (16:29)
[2020-07-12] MEDS ORDERED: MAGNESIUM HYDROXIDE SUSP 30 ML UDC PO PRN (16:29)
[2020-07-12] MEDS ORDERED: HYDROmorphone INJ 0.5 MG/0.5 ML SYR IV PRN (16:29)
[2020-07-12] MEDS ORDERED: METOCLOPRAMIDE HCL INJ 5 MG/ML 2 ML VIAL IV PRN (16:29)
[2020-07-12] MEDS ORDERED: bisacodyL 10 MG SUPP PR PRN (16:29)
--- NOTE | 2020-07-12 16:44 | Anesthesiology Progress Note ---
Date of Service July 12, 2020 Anesthesia Post Procedure Vital Signs Vital Signs: Temp Pulse Resp BP Pulse Ox 07/12/20 15:55 36.6 C 55 L 14 140/65 95 07/12/20 15:45 56 L 14 137/66 98 07/12/20 15:35 57 L 14 126/66 98 07/12/20 15:25 54 L 14 119/64 100 07/12/20 15:15 36.9 C 95 H 14 127/55 L 100 07/12/20 10:10 36.7 C 57 L 18 145/86 H 98 Pain Intensity Right Knee: Pain Intensity: 5 Transfer of Care Handoff Completed per policy Notes Mental Status: alert / awake / arousable and participated in evaluation Patient Amnestic to Procedure: Yes Nausea / Vomiting: adequately controlled Pain: adequately controlled Airway Patency, RR, SpO2: stable & adequate BP & HR: stable & adequate Hydration State: stable & adequate Anesthetic Complications: no major complications apparent
[2020-07-12] MEDS ORDERED: SODIUM CHLORIDE 0.9% 1000ML 1,000 ML IV SCH (17:00)
[2020-07-12] MEDS: ASPIRIN 81 MG ECTAB PO SCH (20:19)
[2020-07-12] MEDS: DOCUSATE SODIUM 100 MG CAP PO SCH (20:20)
[2020-07-12] MEDS ORDERED: SENNA 8.6 MG TAB PO SCH (21:00)
[2020-07-12] MEDS: ceFAZolin 2000MG 2,000 MG/15 ML SYR IV SCH (21:25)
[2020-07-12] MEDS: ACETAMINOPHEN 500 MG TAB PO SCH (21:26)
[2020-07-13] MEDS: oxyCODONE HCL IR 5 MG TAB (IMMEDIATE RELEASE) PO PRN ×2 (00:41→13:09)
[2020-07-13] MEDS: ceFAZolin 2000MG 2,000 MG/15 ML SYR IV SCH (05:53)
[2020-07-13] MEDS: ACETAMINOPHEN 500 MG TAB PO SCH ×2 (05:54→13:08)
--- NOTE | 2020-07-13 06:47 | Orthopedic Progress Note ---
Date of Service July 13, 2020 Assessment & Plan (1) Status post revision of total replacement of right knee: Overall she is doing well. She is having too much pain in the right knee. She will be seen by physical therapy today for ambulation and range of motion exercises. She can be discharged home later today. She will follow-up with orthopedics in 2 weeks. Leticia Valdes was seen and examined at bedside this morning. Overall she is doing very well. She is not in too much pain in the right knee. She has been up and ambulating to the bathroom. She has no complaints.. Review of Systems All systems reviewed & are unremarkable except as noted in HPI & below. Physical Exam On physical examination of the right knee, the dressing is clean and dry. She has active dorsiflexion plantarflexion to her right ankle. She can easily flex her knee to 90 degrees.. Results & Data Results & Data Laboratory Results . Diagnostic Findings . PG Care Time/CCT Total # of Minutes Spent Total Time Spent with Patient: Total time spent is greater than 50% in coordination of care (as documented) at patient's floor/unit and/or counseling patient: Coding Level of Care Code 45707 Post Operative Follow-Up Diagnoses Status post revision of total replacement of right knee Z96.651
--- NOTE | 2020-07-13 06:49 | Discharge Summary ---
Date of Service July 13, 2020 Admission HPI (Per Admitting) Keisha is a pleasant 64-year-old female who his about 15 months status post right total knee arthroplasty. Unfortunately she is never done well since the replacement. It is always sore. She has never regained full flexion. She stops at 90 degrees. She does get full extension. Her knee is sore with every step she takes. The x-rays have looked good. I do not see any signs of loosening on the x-rays. Her white blood cell count was negative. Sed rate and CRP were very mildly elevated. I aspirated her right knee and there was no signs of infection. I also sent the aspiration sample to [facility] and there was no signs of infection there. The knee does not appear to be infected but it is constantly sore. I sent her for bone scan. The bone scan showed increased uptake around the tibial and femoral components but said that it was very nonspecific. She cannot live with the knee the way it is. After failing extensive conservative treatment, she has elected to proceed with a revision right total knee arthroplasty.. Admission Exam (Per Admitting) On physical examination of the right knee, she walks with a slightly antalgic gait. She has range of motion from 0 to 90 degrees. She cannot bend much past 90. She does have a soft endpoint though and I can push her little bit further. There is no signs of infection. There is no effusion. There is no redness. The incisions are all well-healed.. Principal Diagnosis Same as "Discharge Diagnosis" noted below under Discharge Instructions. Discharge Exam On physical examination of the right knee, the dressing is clean and dry. She has active dorsiflexion plantarflexion to her right ankle. She can easily flex her knee to 90 degrees.. Discharge Data Procedures Performed Operation Date: 07/12/20 12:45 Actual Procedures p Right Total Knee Revision, Extensive Debridement, Polyethylene Exchange(Right) - Damián Felix DO Ordered Studies 07/12/20 05:00 US - OR guided needle placemen Routine Hospital Course (1) Status post revision of total replacement of right knee: On July 12, 2020 Keisha arrived at [facility] and underwent a revision of her right knee without complication. She had a spinal anesthetic. Postoperatively she was started on aspirin for DVT prophylaxis and transferred to the general orthopedic floors. Her hospital course was uneventful. On postop day #1 her vital signs were stable and her pain was well controlled. She was able to participate well with physical therapy doing ambulation and range of motion exercises. She was then discharged home. She will follow-up with orthopedics in 2 weeks. PG Care Time/CCT Total # of Minutes Spent Total Time Spent with Patient: Total time spent is greater than 50% in coordination of care (as documented) at patient's floor/unit and/or counseling patient: Discharge Plan Discharge Items Patient Disposition: Home - Home Health Services Reason For Visit: Painful Right Total Knee Arthroplasty Discharge Diagnosis: Revision right knee Activity: Resume your previous activity Non-emergency contact: Surgeon Call non-emergency contact if: your wound has increased redness and your wound has increased drainage Follow-up/Referrals: PCPKARLO [Primary Care Provider] - Diet: Regular Addtl Attending Provider Instructions: Activity and Therapy Recommendations: * If you are using [facility] then therapy will be provided at your home until they feel you have accomplished all of your goals. * If you are using [facility] then Physical Therapy will be provided until they feel you are ready to start Outpatient Physical Therapy. * If you are not using home therapy then Outpatient Physical Therapy should start about 3-5 days from your day of surgery. Therapy will last about 6-10 weeks * It is important not to put a pillow under your knee when you are relaxing or sleeping. It is just as important to make sure you are getting your knee perfectly straight as it is to regain your knee bend. * You were shown a series of exercises in the hospital. Do these exercises three times each day including the exercises you were shown in physical therapy. * Get up and walk several times each day. For the first four weeks, try not to stand or walk for more than one hour at a time. If you do stand or walk for more than one hour, you will not hurt anything, but your leg will likely swell. * As you feel comfortable, you may change from the walker or crutches to a cane and then to independent walking. Medications: * Narcotic You will likely be sent home from the hospital with a prescription for the narcotic pain medication that worked best throughout your stay. * Aspirin Most patients will be required to take Aspirin 81mg twice a day for 6 weeks after surgery. This is obtained [id number] and a prescription is not necessary. * Other medications may be prescribed for specific circumstances. If you have any questions, please call the office at . * Resume previous home medications unless otherwise instructed TEDs/Elastic Stockings: The white elastic stockings help limit swelling and prevent blood clots from forming in your legs.~ The more you wear them, the more they work. Wear them for six weeks. Dressing Care: Leave the dressing on for 2 days. After 2 days you may remove the dressing. If the incision is not draining then you may leave the rafa open to air. If there is a little bit of drainage or if the rafa are getting stuck on your clothing then cover the incision with a dry dressing. The rafa will be removed at your 2 week follow-up appointment. Showering: Do not shower until 5 days after the day of surgery. Let soapy water run over the rafa and pat them dry. Do not scrub or soak the incision. Things To Watch For: * Drainage from the incision site that occurs more than one week after your surgery. * Increased redness at the incision site. * Fever above 102 degrees Fahrenheit. * Unusual chest pain or shortness of breath. * Call [facility] at with any of the above problems Follow-Up Visit: Follow-up with Dr. Felix's PA (Damián Vogt) 2-3 weeks after your day of surgery. He will remove your rafa and answer any questions. If you have any additional questions or concerns, Dr Felix is usually in the office at the same time and will be available An appointment was probably scheduled when you signed-up for surgery in the office. If you have any questions call Office Instructions: More detailed instructions as well as Frequently Asked Questions were provided in a folder by our office when you signed-up for surgery. Please review these instructions when you get home. If you have any further questions or concerns, please feel free to call the office at [phone] Pending Studies at Discharge: No Stand-Alone Forms: [facility], Smoking Cessation Medications and DC Order Prescriptions: New oxycodone 5 mg Tablet 5 mg PO Q4H PRN (Reason: pain) Qty: 30 RF: 0 aspirin 81 mg Tablet,Delayed Release (Dr/Ec) 81 mg PO BID 42 Days Qty: 84 RF: 0 Continued Otezla 30 mg tablet 30 mg PO BID RF: 0 hydrochlorothiazide 25 mg Tablet 25 mg PO QAM RF: 0 omeprazole magnesium [Prilosec OTC] 20 mg Tablet,Delayed Release (Dr/Ec) 20 mg PO QAM RF: 0 cyanocobalamin (vitamin B-12) [Vitamin B-12] 5,000 mcg Tablet, Sublingual 5,000 mcg SUBLINGUAL QAM RF: 0 cholecalciferol (vitamin D3) [Vitamin D3] 5,000 unit Tablet 5,000 unit PO QAM RF: 0 prednisolone acetate 1 drp OPR QAM RF: 0 Discharge Orders: Discharge Order (Routine); Ordered 07/13/20 Ordered By: Damián Felix Admission Data Admit Date/Time: 07/12/20 15:19 Attending Provider: Damián Felix Admit Provider: Damián Felix Primary Care Provider: PCP,KARLO
[2020-07-13] MEDS ORDERED: dexAMETHasone 4 MG TAB PO SCH (08:00)
[2020-07-13] MEDS: ASPIRIN 81 MG ECTAB PO SCH (08:47)
[2020-07-13] MEDS: DOCUSATE SODIUM 100 MG CAP PO SCH (08:49)
[2020-07-13] MEDS ORDERED: hydroCHLOROthiazide 25 MG TAB PO SCH (09:00)
[2020-07-13] MEDS ORDERED: MULTIVITAMIN TAB PO SCH (09:00)
== END 2020-07-13 14:09 | disposition home or self-care (01) ==
LOC: 3E 09:55 → ASU 09:55